=== PATIENT | female | born 1955 | race Caucasian/White ===

== ENCOUNTER 2019-02-12 17:44 | Outpatient (CLI) | payer MEDICARE, OTHER | END 2019-02-12 23:59 | disposition home or self-care (01) | LOC: RAD 17:44 | PROVIDERS: ATTEND Physician Assistant | DX: M17.9 Osteoarthritis of knee, unspecified (principal); M71.21 Synovial cyst of popliteal space [Baker], right knee; R60.0 Localized edema ==